=== PATIENT | male | born 1980 | race Caucasian/White ===

== ENCOUNTER → 2016-10-14 | Outpatient (CLI) | payer OTHER ==
[~2016-10-14] MED LIST: NAPROSYN500 MG PO; NORFLEX100 MG PO
== END ==
LOC: MRI 10-13 09:33
DX: M51.37 Other intervertebral disc degeneration, lumbosacral region (principal)

== ENCOUNTER → 2016-10-22 | Outpatient (CLI) | payer OTHER ==
[~2016-10-22] VITALS: Ht 172.7 cm; Wt 97.5 kg
[~2016-10-22] MED LIST changes: +MOBIC15 MG PO
--- NOTE | ~2016-10-22 | HPC ---
[facility] [place] [address] PAIN MANAGEMENT CONSULTATION Name: ARNOLD KENT Room #: REG MARY Macias#: [id number] Admission: 10/22/16 Attend Phys: Terri Madrigal MD Discharge: Date of : 80 Report #: [id number] THIS REPORT FOR: //name// CC: Nicole Fisher MD DATE OF SERVICE: 10/22/2016 PRIMARY CARE PHYSICIAN: Jacinto Fisher. CHIEF COMPLAINT: Pain in the back and left leg with pain radiating down into the left leg. HISTORY OF PRESENT ILLNESS: The patient is a 36-year-old gentleman who has been referred to the pain clinic for evaluation of back and leg pain. The patient noted onset of this discomfort in about August of this year. He describes it as pain in his lower back, which radiates down into his left leg in the sacral area. He notes that it is worse with bending and with activities of daily living. He is not sure of anything that make it significantly better. He has been taking an ohto-tlt-xnobbzk antiinflammatory medication. He rates his pain as a 3/10 today. It oftentimes rises to a level of a 5. He denies any bowel or bladder dysfunction. He denies any trauma to his back. He denies a history of surgery. PAST MEDICAL HISTORY: Hypertension and emotional problems. PAST SURGICAL HISTORY: None. REVIEW OF SYSTEMS: Questionnaire in the chart indicates generally good health, otherwise unremarkable. LABORATORY DATA: 1. MRI of the lumbar spine dated 10/14/2016 reveals L4-L5 disk desiccation with P2 hyperintensity along the undersurface of the posterior central disk margin consistent with annular tear measuring 9.5 mm transverse. There is a small associated central disk protrusion, which impresses slightly upon the ventral thecal sac. 2. L5-S1 mild posterior disk space narrowing with small, broad-based central disk protrusion, which extends slightly behind the superior endplate of S1. PHYSICAL EXAMINATION: VITAL SIGNS: Blood pressure 142/94, pulse 75, respiratory rate 16 and room air saturation 97%. Height 172 cm, weight 97.5 kilograms and BMI 32.7. MUSCULOSKELETAL: The patient has pain and discomfort in the lower portion of [address] [address] PAIN MANAGEMENT CONSULTATION Name: DONTEBENCANDELARIO Williamson Room #: REG [facility]#: [id number] Admission: 10/22/16 Attend Phys: Terri Madrigal MD Discharge: Date of : 80 Report #: [id number] his back leg. He walks slowly and with an antalgic gait favoring the left leg. He moves slowly from the floor to the examination table to lie in a prone position. IMPRESSION: 1. Lumbar radiculopathy in the L5-S1 nerve root distribution on the left. 2. History of hypertension, does not take medications. RECOMMENDATIONS: We discussed treatment options with the patient. He has undergone oral prednisone treatment, used nonsteroidal anti-inflammatory medications, had narcotic pain medications and has undergone chiropractic and PT therapy, has used muscle relaxant and continues to have pain and discomfort radiating down to his left leg with numbness and weakness. We will proceed with an epidural steroid injection. Risks and benefits were discussed. The patient elects to proceed. PROCEDURE NOTE: The patient was placed in the prone position. Fluoroscopy was used to identify the L5-S1 interspace. This area had been sterilely prepped with Betadine and infiltrated with 0.25% bupivacaine. Total of 80 mg Depo-Medrol, 40 mg triamcinolone and 2 mL of 0.25% bupivacaine was injected. The patient tolerated the procedure well. There were no complications. A prescription for Mobic 15 mg 1 p.o. every day has been written. The patient will call us if he has any problems with his medications. We hope he continues to improve. By: [id number] Terri Madrigal MD /nt
[2016-10-22 08:23] VITALS: BP 142/94
== END ==
LOC: PAIN 07:03
DX: M54.17 Radiculopathy, lumbosacral region (principal); I10 Essential (primary) hypertension

== ENCOUNTER → 2016-11-05 | Outpatient (CLI) | payer OTHER ==
[~2016-11-05] VITALS: Ht 172.7 cm; Wt 99.8 kg
--- NOTE | ~2016-11-05 | HPC ---
[facility] [place] [address] [place] [address] PAIN MANAGEMENT CONSULTATION Name: DONTEARNOLD Teri Room #: REG Christian Colleen#: [id number] Admission: 11/05/16 Attend Phys: Terri Madrigal MD Discharge: Date of : 80 Report #: [id number] THIS REPORT FOR: //name// CC: Nicole Fisher MD DATE OF SERVICE: 11/05/2016 FOLLOWUP COMPLAINT: Pain is about 90% better. FOLLOWUP HISTORY: The patient is a 36-year-old gentleman who has been seen in the pain clinic because of lumbar radiculopathy with pain radiating down into his left leg. He underwent an epidural steroid injection at the last visit. He feels that things are about 90% better, but still has some discomfort with numbness and weakness and would like to proceed with another injection. There have been no complications from the procedure. No problems with bowel or bladder changes. He would like to proceed with another injection. PHYSICAL EXAMINATION: Blood pressure is 136/75, pulse 95. The patient has pain and discomfort radiating down the left leg with numbness, weakness and tenderness. IMPRESSION: Improving lumbar radicular pain. RECOMMENDATIONS: We will proceed with another epidural steroid injection. Risks and benefits of the procedure were reviewed and the patient elects to proceed. PROCEDURE NOTE: The patient was placed in the prone position. Fluoroscopy was used to identify the L5-S1 area. This area had been sterilely prepped with Betadine and infiltrated with 0.25% bupivacaine. Total of 80 mg Depo-Medrol, 40 mg triamcinolone and 2 mL of 0.25% bupivacaine was injected. The patient tolerated the procedure well. There were no complications. We would like to thank you for letting us participate in his care. We hope he continues to improve. By: [id number] Terri Madrigal MD /nt
[2016-11-05 08:21] VITALS: BP 137/97
== END | disposition home or self-care (01) ==
LOC: PAIN 06:18
DX: M54.16 Radiculopathy, lumbar region (principal)

== ENCOUNTER → 2017-04-13 | Outpatient (CLI) | payer OTHER ==
[~2017-04-13] VITALS: Ht 172.7 cm; Wt 101.4 kg
--- NOTE | ~2017-04-13 | HPC ---
[facility] [address] [place] [address] PAIN MANAGEMENT CONSULTATION Name: ARNOLD KENT Teri Room #: REG MARY [facility]er[facility]#: [id number] Admission: 04/13/17 Attend Phys: Terri Madrigal MD Discharge: Date of : 80 Report #: [id number] THIS REPORT FOR: //name// CC: Nicole Fisher MD DATE OF SERVICE: 04/13/2017 CHIEF COMPLAINT: Pain in the low back with pain radiating down the hip and to about buttocks. FOLLOWUP HISTORY: The patient is a 37-year-old gentleman who has been seen in the pain clinic because of lumbar radiculopathy. He is experiencing pain and discomfort in the lower portion of his back with pain has radiated down into his buttocks and hip. He rates it as a 3/10. Bending and other activities exacerbate his discomfort. He noted greater than 50% improvement after the last epidural steroid injection and has returned today for followup injection. He has had no complication from the procedure. He denies any bowel or bladder dysfunction, which are new. PHYSICAL EXAMINATION: Blood pressure 122/76, pulse 72, respiratory rate 16, room air saturation 98%. Height 5 feet 8 inches, weight is 223 pounds, BMI is 34. The patient has pain and discomfort radiating down the left leg in the L5-S1 dermatomal distribution. IMPRESSION: 1. L5-S1 pain with a history of disk space narrowing at L5-S1 with a broad-based central disk protrusion, which extends slightly behind the superior endplate of S1. 2. History of hypertension. RECOMMENDATIONS: We discussed treatment options with the patient. Risks and benefits of an epidural steroid injection were again reviewed. Possible complications were rediscussed. The patient elects to proceed. PROCEDURE NOTE: The patient was placed in the prone position. Fluoroscopy was used to identify the L5-S1 area. An interlaminar approach was performed. After appropriate placement, a total of 80 mg Depo-Medrol, 40 mg triamcinolone and 2 mL of 0.25% bupivacaine was injected. The patient tolerated the procedure well. [address] [address] PAIN MANAGEMENT CONSULTATION Name: ARNOLD KENT Room #: REG [facility]#: [id number] Admission: 04/13/17 Attend Phys: Terri Madrigal MD Discharge: Date of : 80 Report #: [id number] There were no complications. We would like to thank you for letting us participate in his care. We hope he continues to improve. By: [id number] Terri Madrigal MD /ILANA
[2017-04-13 09:10] VITALS: BP 122/76
== END | disposition home or self-care (01) ==
LOC: PAIN 07:10
DX: M54.16 Radiculopathy, lumbar region (principal); M48.06 Spinal stenosis, lumbar region; I10 Essential (primary) hypertension; Z68.34 Body mass index [BMI] 34.0-34.9, adult